=== PATIENT | male | born 1930 | race Caucasian/White ===

== ENCOUNTER 2018-01-16 10:33 | Emergency (ER) | payer MEDICARE, OTHER ==
[~2018-01-16] VITALS: Ht 165.1 cm; Wt 54.0 kg
[~2018-01-16 10:33] MED LIST: ACTO15TA22 PO; AMLO10TA2 PO; ASPI1TAB69 PO; ATEN25TA PO; GLIM2TAB PO; LOSA100T PO; MULT-65 PO; NIFE20 PO; SIMV80TA PO
[2018-01-16 10:38] VITALS: BP 157/71; PULSE 63; RESP 17; TEMP 97.6; O2SAT 100
[2018-01-16] MEDS ORDERED: ASPI-516 CHEW (11:16)
[2018-01-16] MEDS ORDERED: SODIUM CHLORIDE 0.9% FLUSH 10 ML FLUSH IVF PRN (12:15)
[2018-01-16] MEDS ORDERED: ASPIRIN 325 MG TAB PO ONE (12:15)
--- NOTE | 2018-01-16 12:19 | PD ---
HPI Chief Complaint: Neuro Symptoms/ Deficits Time Seen by Provider: 12:14 Travel History International Travel<30 days: No Contact w/Intl Traveler<30days: No Traveled to known affect area: No History of Present Illness HPI Patient presents with concerns of generalized weakness and decreased right upper extremity hand coordination. History of right carpal tunnel. Past medical history of diabetes hypertension and mild COPD. Reports a recent lower back injection by pain management. In the past he has felt weak with a spike in his blood sugars after previous injections. Per his daughter he spent several hours in the yard trimming his hedges yesterday. Denies any nausea vomiting diarrhea or fever. No new rashes. No history of stroke or TIA. PFSH Past Medical History Hx Anticoagulant Therapy: Yes (ASA) Cancer: Yes (SKIN) Cardiovascular Problems: Yes High Cholesterol: Yes Coronary Artery Disease: Yes Diabetes: Yes Diminished Hearing: No Genitourinary: Yes (BPH) Hepatitis: No Hiatal Hernia: No Hypertension: Yes Thyroid Disease: No PNEUMOCCOCAL Vaccine (Year): 2009 Past Surgical History Abdominal Surgery: Yes (OMEGA. ING. HERNIA REP.) Coronary Stent: Yes (2000) Genitourinary Surgery: Yes (TURP NOV 2011) Oral Surgery: Yes (T & A) Tonsillectomy: Yes Other Surgery: Yes (HERNIA REPAIR) Social History Alcohol Use: No Tobacco Use: No Substance Use: No Allergies-Medications (Allergen,Severity, Reaction): Coded Allergies: No Known Allergies (Verified Allergy, Unknown, 01/14/18) Reported Meds & Prescriptions Reported Meds & Active Scripts Active Reported Aspirin 81 Mg Chew 81 Mg CHEW EVERY OTHER DAY Nifedipine 20 Mg Cap 30 Mg PO DAILY Atenolol 25 Mg Tab 12.5 Mg PO DAILY Glimepiride 2 Mg Tab 2 Mg PO DAILY Take with breakfast or first main meal Multi-Vitamin Daily (Multiple Vitamin) 1 Tab Tab 1 Tab PO DAILY Actos (Pioglitazone HCl) 15 Mg Tab 7.5 Mg PO DAILY Simvastatin 80 Mg Tab 80 Mg PO DAILY Losartan (Losartan Potassium) 100 Mg Tab 100 Mg PO DAILY Amlodipine (Amlodipine Besylate) 10 Mg Tab 5 Mg PO DAILY Review of Systems General / Constitutional: No: Fever Eyes: No: Visual changes HENT: No: Headaches Cardiovascular: No: Chest Pain or Discomfort Respiratory: No: Shortness of Breath Gastrointestinal: No: Abdominal Pain Genitourinary: No: Dysuria Musculoskeletal: No: Pain Skin: No Rash Neurologic: No: Weakness Psychiatric: No: Depression Endocrine: No: Polydipsia Hematologic/Lymphatic: No: Easy Bruising Physical Exam Narrative GENERAL: [-] SKIN: Focused skin assessment warm/dry. HEAD: Atraumatic. Normocephalic. EYES: Pupils equal and round. No scleral icterus. No injection or drainage. ENT: No nasal bleeding or discharge. Mucous membranes pink and moist. NECK: Trachea midline. No JVD. CARDIOVASCULAR: Regular rate and rhythm. No murmur appreciated. RESPIRATORY: No accessory muscle use. Clear to auscultation. Breath sounds equal bilaterally. GASTROINTESTINAL: Abdomen soft, non-tender, nondistended. Hepatic and splenic margins not palpable. MUSCULOSKELETAL: No obvious deformities. No clubbing. No cyanosis. No edema. NEUROLOGICAL: Awake and alert. No obvious cranial nerve deficits. Motor grossly within normal limits. Normal speech. No upper extremity weakness appreciated No upper extremity or lower extremity drift PSYCHIATRIC: Appropriate mood and affect; insight and judgment normal. Data Data Last Documented VS Vital Signs Date Time Temp Pulse Resp B/P (MAP) Pulse Ox O2 Delivery O2 Flow Rate FiO2 01/16/18 14:17 62 18 179/72 (107) 97 Room Air 01/16/18 10:38 97.6 Orders Orders Electrocardiogram (01/16/18 12:14) Complete Blood Count With Diff (01/16/18 12:14) Comprehensive Metabolic Panel (01/16/18 12:14) Urinalysis - C+S If Indicated (01/16/18 12:14) Chest, Single Ap (01/16/18 12:14) Ecg Monitoring (01/16/18 12:14) Iv Access Insert/Monitor (01/16/18 12:14) Oximetry (01/16/18 12:14) Aspirin (Aspirin) (01/16/18 12:15) Sodium Chloride 0.9% Flush (Ns Flush) (01/16/18 12:15) Ct Brain W/O Iv Contrast(Rout) (01/16/18 ) Labs Laboratory Tests Test 01/16/18 13:10 White Blood Count 8.1 TH/MM3 Red Blood Count 4.27 MIL/MM3 Hemoglobin 12.2 GM/DL Hematocrit 36.9 % Mean Corpuscular Volume 86.4 FL Mean Corpuscular Hemoglobin 28.5 PG Mean Corpuscular Hemoglobin Concent 33.0 % Red Cell Distribution Width 14.2 % Platelet Count 251 TH/MM3 Mean Platelet Volume 9.1 FL Neutrophils (%) (Auto) 79.6 % Lymphocytes (%) (Auto) 14.3 % Monocytes (%) (Auto) 6.1 % Eosinophils (%) (Auto) 0.0 % Basophils (%) (Auto) 0.0 % Neutrophils # (Auto) 6.4 TH/MM3 Lymphocytes # (Auto) 1.2 TH/MM3 Monocytes # (Auto) 0.5 TH/MM3 Eosinophils # (Auto) 0.0 TH/MM3 Basophils # (Auto) 0.0 TH/MM3 CBC Comment DIFF FINAL Differential Comment Urine Collection Type CATH Urine Color YELLOW Urine Turbidity CLEAR Urine pH 5.5 Urine Specific [place] 1.020 Urine Protein 100 mg/dL Urine Glucose (UA) 1000 OR GREATER mg/dL Urine Ketones NEG mg/dL Urine Occult Blood SMALL Urine Nitrite NEG Urine Bilirubin NEG Urine Urobilinogen 0.2 MG/DL Urine Leukocyte Esterase NEG Urine RBC 0-3 /hpf Urine WBC 0-2 /hpf Microscopic Urinalysis Comment CATH-CULT NOT IND Blood Urea Nitrogen 42 MG/DL Creatinine 1.60 MG/DL Random Glucose 315 MG/DL Total Protein 7.6 GM/DL Albumin 3.5 GM/DL Calcium Level 9.5 MG/DL Alkaline Phosphatase 108 U/L Aspartate Amino Transf (AST/SGOT) 18 U/L Alanine Aminotransferase (ALT/SGPT) 29 U/L Total Bilirubin 0.3 MG/DL Sodium Level 136 MEQ/L Potassium Level 4.3 MEQ/L Chloride Level 102 MEQ/L Carbon Dioxide Level 22.3 MEQ/L Anion Gap 12 MEQ/L Estimat Glomerular Filtration Rate 41 ML/MIN [facility] Medical Decision Making Medical Screen Exam Complete: Yes Emergency Medical Condition: Yes Differential Diagnosis CVA, TIA, generalized weakness Narrative Course Assessment plan discussed with patient and daughter at bedside. Random blood sugar 350. EKG revealed sinus rhythm with right bundle branch block rate 61. Chest x-ray revealed no acute cardiopulmonary process. CT the brain within normal limits. Shunt and daughter declined, she will keep an eye on him this evening as he does pose a risk for stroke with his age diabetes and questionable neuro symptoms. Diagnosis Primary Impression: Generalized weakness Additional Instructions: Encouraged rest fluids and Tylenol. Follow-up with PCP. Return to emergency room with any onset of new symptoms. Med/Other Pt SpecificInfo: No Meds Exist/No RX given Disposition: 01 DISCHARGE HOME Condition: Good Darinel Flowers MD Jan 16, 2018 12:19
--- NOTE | 2018-01-16 12:43 | RADRPT ---
EXAM DATE/TIME: 01/16/2018 12:26 [facility] COMPARISON: No previous studies available for comparison. INDICATIONS : CVA, unable to use right hand MEDICAL HISTORY : Chronic obstructive pulmonary disease. SURGICAL HISTORY : None. ENCOUNTER: Initial ACUITY: 2 days PAIN SCORE: 0/10 LOCATION: Bilateral chest FINDINGS: The heart is mildly prominent. Mild perihilar and right basilar streakiness is noted consistent with possible atelectasis and/or infiltrate. No pulmonary edema is noted. Tiny nodular densities are noted within the left upper lung field and are nonspecific. Outpatient CT of the chest would be helpful fo r further evaluation of these nodules if clinically indicated. CONCLUSION: 1. Mild cardiomegaly. 2. Mild perihilar and right basilar streakiness consistent with possible atelectasis and/or infiltrat e. 3. Tiny nodules within the left upper lung field are nonspecific. Outpatient CT of the chest would be helpful for further evaluation these nodules if clinically indicated. Trae Ovalles MD on January 16, 2018 at 12:34 Board Certified Radiologist. This report was verified electronically.
--- NOTE | 2018-01-16 12:58 | RADRPT ---
EXAM DATE/TIME: 01/16/2018 12:36 [facility] COMPARISON: No previous studies available for comparison. INDICATIONS : General weakness, right hand weakness. RADIATION DOSE: 56.93 CTDIvol (mGy) MEDICAL HISTORY : Cardiovascular disease. Hypercholesterolemia. Hypertension.CAD,skin ca SURGICAL HISTORY : Tonsillectomy. Epidural for pain, stents denise ing hernia repair. ENCOUNTER: Initial ACUITY: 2 days PAIN SCALE: 0/10 LOCATION: cranial TECHNIQUE: Multiple contiguous axial images were obtained of the head. Using automated exposure control and adj ustment of the mA and/or kV according to patient size, radiation dose was kept as low as reasonably a chievable to obtain optimal diagnostic quality images. DICOM format image data is available electro nically for review and comparison. FINDINGS: CEREBRUM: The ventricles and cortical sulci are widened. No evidence of midline shift, mass lesion, hemorrhage or acute infarction. No extra-axial fluid collections are seen. POSTERIOR FOSSA: The cerebellum and brainstem are intact. The 4th ventricle is midline. The cerebellopontine angle i s unremarkable. EXTRACRANIAL: The visualized portion of the orbits is intact. SKULL: The calvaria is intact. No evidence of skull fracture. CONCLUSION: 1. No acute abnormality seen. 2. Age-related atrophy. Nba Hatfield MD on January 16, 2018 at 12:54 Board Certified Radiologist. This report was verified electronically.
[2018-01-16 13:25] LABS: AUTOMATED NEUTROPHIL # 6.4 TH/MM3 (1.8-7.7); HEMATOCRIT 36.9 % (39.0-51.0); HEMOGLOBIN 12.2 GM/DL (13.0-17.0); LYMPH % 14.3 % (9.0-44.0); LYMPHOCYTE # 1.2 TH/MM3 (1.0-4.8); MEAN CELL VOLUME 86.4 FL (80.0-100.0); MEAN CORPUSCULAR HEMOGLOBIN 28.5 PG (27.0-34.0); MEAN PLATELET VOLUME 9.1 FL (7.0-11.0); MONO % 6.1 % (0.0-8.0); MONOCYTE # 0.5 TH/MM3 (0-0.9); NEUT % 79.6 % (16.0-70.0); PLATELET COUNT 251 TH/MM3 (150-450); RED BLOOD COUNT 4.27 MIL/MM3 (4.50-5.90); RED CELL DISTRIBUTION WIDTH 14.2 % (11.6-17.2); WHITE BLOOD COUNT 8.1 TH/MM3 (4.0-11.0)
[2018-01-16 13:26] LABS: BILIRUBIN, URINE NEG (NEG); BLOOD, URINE SMALL (NEG); GLUCOSE,URINE 1000 OR GREATER mg/dL (NEG); KETONE, URINE NEG (NEG); NITRITE,URINE NEG (NEG); PH, URINE 5.5 (5.0-8.5); URINE COLOR YELLOW (YELLW/STRAW); URINE LEUKOCYTE ESTERASE NEG (NEG)
[2018-01-16 13:30] LABS: RBC, URINE 0-3 /hpf (0-3); WBC, URINE 0-2 /hpf (0-5)
[2018-01-16 13:36] LABS: CHLORIDE 102 MEQ/L (98-107); SODIUM (NA) 136 MEQ/L (136-145)
[2018-01-16 13:39] LABS: ALBUMIN 3.5 GM/DL (3.4-5.0); BICARBONATE 22.3 MEQ/L (21.0-32.0); CALCIUM 9.5 MG/DL (8.5-10.1); GLUCOSE,RANDOM 315 MG/DL (74-106)
[2018-01-16 13:40] LABS: BLOOD UREA NITROGEN 42 MG/DL (7-18)
[2018-01-16 13:43] LABS: ALT (GPT) 29 U/L (12-78); AST (GOT) 18 U/L (15-37); GLOMERULAR FILTRATION RATE 41 ML/MIN (>89)
[2018-01-16 13:44] LABS: TOTAL BILIRUBIN ADULT 0.3 MG/DL (0.2-1.0); TOTAL PROTEIN 7.6 GM/DL (6.4-8.2)
[2018-01-16 13:45] LABS: ALKALINE PHOSPHATASE 108 U/L (45-117)
[2018-01-16 14:17] VITALS: BP 179/72; PULSE 62; RESP 18; O2SAT 97
--- NOTE | 2018-01-16 20:06 | EKG ---
Date Performed: 01/16/2018 Time Performed: 12:54:42 PTAGE: 87 years EKG: Sinus rhythm RIGHT BUNDLE BRANCH BLOCK LEFT ANTERIOR FASCICULAR BLOCK MODERATE VOLTAGE CRITERIA FOR LVH, CONSIDER NORMAL VARIANT POSSIBLE SEPTAL MYOCARDIAL INFARCTION ABNORMAL ECG Since the PREVIOUS TRACING , no significant change noted PREVIOUS TRACIN01/06/2002 03.46 DOCTOR: Dawna Galvin Interpretating Date/Time 01/16/2018 20:04:01
== END 2018-01-16 14:55 | disposition home or self-care (01) ==
LOC: PHED 10:33
DX: R53.1 Weakness (principal); E11.9 Type 2 diabetes mellitus without complications; E78.00 Pure hypercholesterolemia, unspecified; I10 Essential (primary) hypertension; I25.10 Atherosclerotic heart disease of native coronary artery without angina pectoris; Z79.84 Long term (current) use of oral hypoglycemic drugs
CPT/HCPCS: 70450; 71045; 80053; 81001; 85025; 93005; 99285